=== PATIENT | female | born 1965 | race African-American/Black ===

== ENCOUNTER 2017-05-03 05:44 | Day surgery (SDC) | payer BC ==
[2017-05-03] MEDS ORDERED: FENTAnyl 50 MCG/ML VIAL (08:40)
[2017-05-03] MEDS ORDERED: MIDAZOLAM 1 MG/ML 2 ML INJ ×3 (08:40→19:01)
== END 2017-05-03 10:17 | disposition home or self-care (01) ==
LOC: GIL 05:44
DX: Z12.11 Encounter for screening for malignant neoplasm of colon (principal); K64.8 Other hemorrhoids
CPT/HCPCS: 45378